=== PATIENT | female | born 1950 | race Caucasian/White ===

== ENCOUNTER 2016-10-24 19:50 | Emergency (ER) | payer MEDICARE, BC ==
[2016-10-24 20:08] VITALS: TEMP 98
--- NOTE | 2016-10-24 20:23 | ED.PDOC ---
History of Present Illness - General Chief Complaint: Neuro Symptoms/Deficits Stated Complaint: lethargic, weakness Time Seen by Provider: 10/24/16 19:58 Source: patient, family Exam Limitations: clinical condition - History of Present Illness Initial Comments: Patient presents with lethargy and AMS. She has stage 4 colon CA and the family says she has not taken any oral fluids for 2-3 days. She had palliative chemotherapy last tuesday, tuesday, and tuesday. She says that she had some abdominal pain earlier. She has had some blood in her colostomy bag that she was told would be normal following chemotherapy. No other complaints. 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 Timing/Duration: other - 3 days Severity: moderate Improving Factors: nothing Worsening Factors: nothing Associated Symptoms: loss of appetite Allergies/Adverse Reactions: Allergies NO KNOWN ALLERGY Allergy (Verified 07/01/16 17:31) Home Medications: Ambulatory Orders Esomeprazole Magnesium [Nexium] 20 mg PO DAILY 07/01/16 HYDROcodone 10MG/APAP 325MG [[place] 10/325] 1 tab PO PRN 07/01/16 Levothyroxine Sodium [Synthroid] 150 mcg PO DAILY 07/01/16 Review of Systems - Review of Systems Constitutional: States: no symptoms reported EENTM: States: no symptoms reported Respiratory: States: no symptoms reported Cardiology: States: no symptoms reported Gastrointestinal/Abdominal: States: see HPI Genitourinary: States: no symptoms reported Musculoskeletal: States: no symptoms reported Skin: States: no symptoms reported Neurological: States: see HPI Endocrine: States: no symptoms reported Hematologic/Lymphatic: States: see HPI Past Medical History (General) - Patient Medical History Hx Hypertension: Yes Hx Thyroid Disease: Yes Hx Diabetes: No Hx Cancer: Yes - liver, colon, lung - Vaccination History Hx Influenza Vaccination: Yes Hx Pneumococcal Vaccination: Yes - Social History Hx Tobacco Use: Yes - Female History Patient is a Female of Child Bearing Age (10 -59 yrs old): No Family Medical History - Family History Mother Family History: Unknown Living Status: Unknown Physical Exam - Physical Exam General Appearance: Lethargic Ears, Nose, Throat: normal ENT inspection Neck: non-tender, full range of motion, supple Respiratory: lungs clear Cardiovascular/Chest: regular rate, rhythm Gastrointestinal/Abdominal: normal bowel sounds, non tender, soft, other - blood in colostomy bag Extremity: no pedal edema Neurologic: depressed affect Skin Exam: jaundice Lymphatic: no adenopathy Progress - Progress Progress: 10/24/16 22:13 Hb 9.1 bilirubin 7.1 wbc 0.8 I called and spoke with Dr. Szymanski, who is the physician diamond saw operator for her oncologist Dr. Herrera. He recommended admission and Neupogen. Patient normally is admitted to [facility] in [place]. Dr. Welsh at [facility] accepted the patient for admission. Patient's family elected to go by private vehicle. Departure - Departure Clinical Impression: Leukopenia due to antineoplastic chemotherapy, Anemia, Hyperbilirubinemia, Adenocarcinoma of large intestine Disposition: Transfer to Hospital Condition: Fair Departure Forms: ED Discharge - Pt. Copy, Patient Portal Self Enrollment Diet: other - as per hospitalist Home Medications: Ambulatory Orders Esomeprazole Magnesium [Nexium] 20 mg PO DAILY 07/01/16 HYDROcodone 10MG/APAP 325MG [[place] 10/325] 1 tab PO PRN 07/01/16 Levothyroxine Sodium [Synthroid] 150 mcg PO DAILY 07/01/16
[2016-10-24] MEDS ORDERED: SODIUM CHLORIDE 0.9% 1000ML 1,000 ML IVS ONE (21:02)
[2016-10-24 21:59] VITALS: O2SAT 92
[2016-10-24] MEDS ORDERED: KETOROLAC TROMETHAMINE INJ 30 MG/ML VIAL IV ONE (22:04)
[2016-10-24] MEDS ORDERED: SODIUM CHLORIDE 0.9% 1000ML 1,000 ML IVS PRN (22:48)
[2016-10-25 00:55] VITALS: BP 124/55
== END 2016-10-25 00:15 | disposition short-term general hospital (02) ==
LOC: ER 19:50
DX: D70.1 Agranulocytosis secondary to cancer chemotherapy (principal); C18.9 Malignant neoplasm of colon, unspecified; D64.9 Anemia, unspecified; E80.6 Other disorders of bilirubin metabolism; Z93.3 Colostomy status; Z79.899 Other long term (current) drug therapy; I10 Essential (primary) hypertension; E07.9 Disorder of thyroid, unspecified; Z87.891 Personal history of nicotine dependence; Z85.118 Personal history of other malignant neoplasm of bronchus and lung; Z85.05 Personal history of malignant neoplasm of liver
CPT/HCPCS: 36415; 80053; 85025; J1885; J7030